=== PATIENT | female | born 1985 | race Caucasian/White ===

== ENCOUNTER 2021-12-25 11:30 | Emergency (ER) | payer OTHER ==
[2021-12-25 12:13] VITALS: BP 124/93; PULSE 69; RESP 18; BMI 30.2
[2021-12-25] MEDS ORDERED: ACETAMINOPHEN 500 MG TABLET (FP) PO ONE (12:40)
[2021-12-25] MEDS ORDERED: KETOROLAC TROMETHAMINE 30 MG/1 ML VIAL IM ONE (12:40)
[2021-12-25] MEDS ORDERED: CYCLOBENZAPRINE HCL 10 MG TABLET (FP) PO ONE (12:40)
[2021-12-25] MEDS ORDERED: LIDOCAINE 5% TOPICAL PATCH TP ONE (12:40)
[2021-12-25] MEDS ORDERED: CYCLOBENZAPRINE HCL 10 MG TABLET (FP) ONE (12:45)
[2021-12-25] MEDS ORDERED: KETOROLAC TROMETHAMINE 30 MG/1 ML VIAL ONE (12:45)
[2021-12-25] MEDS ORDERED: LIDOCAINE 5% TOPICAL PATCH ONE (12:45)
[2021-12-25] MEDS ORDERED: ACETAMINOPHEN 500 MG TABLET (FP) ONE (12:45)
[2021-12-25] MEDS ORDERED: LIDOCAINE PATCH REMOVAL MC SCH (22:00)
== END 2021-12-25 14:20 | disposition home or self-care (01) ==
LOC: JERFT 11:30
PROC: 3E0233Z Introduction of Anti-inflammatory into Muscle, Percutaneous Approach (ICD-10-PCS; principal; 2021-12-25)
DX: M79.602 Pain in left arm (principal); M54.2 Cervicalgia
CPT/HCPCS: 72125-TC; 99284-25